=== PATIENT | male | born 1955 | race African-American/Black ===

== ENCOUNTER 2019-04-12 12:31 | Inpatient (IN) ==
[2019-04-12] MEDS ORDERED: ACETAMINOPHEN 325 MG TABLET PO PRN (15:22)
[2019-04-12] MEDS ORDERED: ONDANSETRON 4 MG/2 ML VIAL IV PRN (15:22)
[2019-04-12] MEDS ORDERED: PROMETHAZINE 25 MG/1 ML VIAL IM PRN (15:22)
[2019-04-12] MEDS ORDERED: SODIUM CHLORIDE 0.9% 1,000 ML IV ONE ×2 (15:49→16:15)
[2019-04-12 16:48] LABS: Basophils # 0.1 10*3/uL (0.0-0.2); Basophils % 0.3 % (0.0-0.8); Eosinophils # 0.1 10*3/uL (0.0-0.87); Eosinophils % 0.3 % (0.00-10.9); Hematocrit 28.9 VOL% (42.0-52.0); Hemoglobin 9.1 GM/DL (14.0-18.0); Immature Granulocytes % 2.8 %; Immature Granulocytes Absolute 0.89 #; Lymphocytes # 1.5 10*3/uL (1.4-4.0); Lymphocytes % 4.8 % (21.2-54.2); Mean Corpuscular HGB Conc 31.5 GM/DL (32-36); Mean Corpuscular Volume 80.5 FL (87-102); Mean Platelet Volume 10.1 FL (9.6-12.0); Neutrophils % 88.8 % (38.7-73.9); Platelet Count 521 T/CUMM (130-400); Red Blood Count 3.59 MC/CUMM (3.8-5.5); Red Cell Distribution Width 18.1 % (9.3-17.3); White Blood Count 31.3 T/CUMM (4-12)
[2019-04-12] MEDS ORDERED: DOXYCYCLINE HYCLATE INJ 100 MG in SODIUM CHLORIDE 0.9% 100 ML IV SCH (17:00)
[2019-04-12] MEDS: PANTOPRAZOLE 40 MG TABLET PO SCH (17:08)
[2019-04-12 17:09] LABS: % Iron Saturation 5.4 % (18-50); Ferritin 768.9 ng/ml (26-388)
[2019-04-12] MEDS: cefTRIAXone 2,000 MG in SYRINGE 1 EACH IV SCH (17:10)
[2019-04-12] MEDS: SODIUM CHLORIDE 0.9% 1,000 ML IV SCH (17:10)
[2019-04-12] MEDS: AZITHROMYCIN INJ 500 MG in SODIUM CHLORIDE 0.9% 250 ML IV SCH (17:10)
[2019-04-12 17:17] LABS: Alanine Aminotransferase 20 U/L (16-61); Albumin 1.7 G/DL (3.4-5.0); Alkaline Phosphatase 95 U/L (45-117); Aspartate Amino Transferase 37 U/L (0-37); Bilirubin,Total < 0.39 MG/DL (0.2-1.0); Blood Urea Nitrogen 14 MG/DL (7-18); Calcium 7.7 MG/DL (8.5-10.1); Glucose 80 MG/DL (74-106); Osmolality,Calculated 265.4 MOS/KG (273-304); Total Protein 7.4 G/DL (6.4-8.3)
[2019-04-12 17:23] LABS: Hypochromasia 1+; Lymphocytes 7 % (20-55); Segmented Neutrophils 90 % (50-85); Target Cells Few; Total Cells Counted 100
[2019-04-12 17:24] LABS: Platelet Estimate Increased; Polychromasia Few
[2019-04-12 18:17] LABS: Folate 12.3 NG/ML (5.4-24.0)
[2019-04-12] MEDS: ENOXAPARIN 40 MG/0.4 ML SYRINGE SUBCUT SCH (20:27)
[2019-04-12 21:00] LABS: Apearance,Urine CLEAR (Clear); Bilirubin,Urine Negative (Negative); Blood, Urine Negative (Negative); Glucose,Urine (UA) Negative (Negative); Ketones,Urine Negative (Negative); Nitrite,Urine Negative (Negative); Protein,Urine Negative; RBC,Urine 2 /HPF (0-4); Squamous Epithelial Cell,Urine Occasional /HPF (0-10); Urine Color Yellow (Yellow); Urine Specific Gravity > 1.060 (1.001-1.035); WBC,Urine 1 /HPF (0-6)
[2019-04-13] MEDS: SODIUM CHLORIDE 0.9% 1,000 ML IV SCH ×3 (02:17→21:39)
[2019-04-13] MEDS: MORPHINE 4 MG/1 ML VIAL IV PRN ×2 (03:20→12:10)
[2019-04-13 05:49] LABS: Basophils % 0.2 % (0.0-0.8); Eosinophils # 0.6 10*3/uL (0.0-0.87); Eosinophils % 2.7 % (0.00-10.9); Hematocrit 28.2 VOL% (42.0-52.0); Immature Granulocytes % 1.1 %; Immature Granulocytes Absolute 0.24 #; Lymphocytes # 1.5 10*3/uL (1.4-4.0); Lymphocytes % 6.5 % (21.2-54.2); Mean Corpuscular HGB Conc 31.9 GM/DL (32-36); Mean Corpuscular Volume 79.2 FL (87-102); Mean Platelet Volume 10.2 FL (9.6-12.0); Monocytes % 2.5 % (1.7-12.7); Platelet Count 494 T/CUMM (130-400); Red Blood Count 3.56 MC/CUMM (3.8-5.5); Red Cell Distribution Width 18.3 % (9.3-17.3); White Blood Count 22.6 T/CUMM (4-12)
[2019-04-13 06:07] LABS: Risk Ratio 3.04; VLDL CHOLESTEROL 14.4 MG/DL
[2019-04-13 06:09] LABS: Albumin 1.7 G/DL (3.4-5.0); Bilirubin,Total 0.8 MG/DL (0.2-1.0); Calcium 7.6 MG/DL (8.5-10.1); Osmolality,Calculated 276.5 MOS/KG (273-304); Total Protein 6.7 G/DL (6.4-8.3)
[2019-04-13 06:32] LABS: Band Neutrophils 3 % (0-10); Hypochromasia 2+; Lymphocytes 6 % (20-55); Platelet Estimate Increased; Segmented Neutrophils 88 % (50-85); Target Cells 2+; Total Cells Counted 100
[2019-04-13] MEDS: PANTOPRAZOLE 40 MG TABLET PO SCH (09:24)
[2019-04-13] MEDS: AZITHROMYCIN INJ 500 MG in SODIUM CHLORIDE 0.9% 250 ML IV SCH (16:44)
[2019-04-13] MEDS: cefTRIAXone 2,000 MG in SYRINGE 1 EACH IV SCH (17:03)
[2019-04-13 18:14] LABS: HIV Antigen/Antibody Result Nonreactive (Nonreactive)
[2019-04-13] MEDS: ENOXAPARIN 40 MG/0.4 ML SYRINGE SUBCUT SCH (20:26)
[2019-04-14] MEDS: MORPHINE 4 MG/1 ML VIAL IV PRN (05:16)
[2019-04-14] MEDS: SODIUM CHLORIDE 0.9% 1,000 ML IV SCH ×3 (05:21→23:15)
[2019-04-14 06:46] LABS: Basophils # 0.1 10*3/uL (0.0-0.2); Basophils % 0.3 % (0.0-0.8); Eosinophils # 0.9 10*3/uL (0.0-0.87); Eosinophils % 5.3 % (0.00-10.9); Hematocrit 25.7 VOL% (42.0-52.0); Hemoglobin 8.1 GM/DL (14.0-18.0); Immature Granulocytes % 0.9 %; Immature Granulocytes Absolute 0.14 #; Lymphocytes # 1.8 10*3/uL (1.4-4.0); Lymphocytes % 11.3 % (21.2-54.2); Mean Corpuscular HGB Conc 31.5 GM/DL (32-36); Mean Corpuscular Volume 80.3 FL (87-102); Mean Platelet Volume 10.1 FL (9.6-12.0); Monocytes % 4.1 % (1.7-12.7); Neutrophils % 78.1 % (38.7-73.9); Platelet Count 488 T/CUMM (130-400); Red Cell Distribution Width 18.5 % (9.3-17.3)
[2019-04-14 07:03] LABS: Calcium 7.2 MG/DL (8.5-10.1); Osmolality,Calculated 277.4 MOS/KG (273-304)
[2019-04-14] MEDS: PANTOPRAZOLE 40 MG TABLET PO SCH (08:22)
[2019-04-14] MEDS: AZITHROMYCIN INJ 500 MG in SODIUM CHLORIDE 0.9% 250 ML IV SCH (08:23)
[2019-04-14] MEDS: POTASSIUM CHLORIDE 20 MEQ TABLET PO PRN ×2 (08:26→10:20)
[2019-04-14 10:01] LABS: Albumin (SPE) Rel % 32.5 %; Alpha 1 (SPE) Rel % 3.8 %; Alpha 2 (SPE) Rel % 10.5 %; Beta (SPE) Rel % 12.6 %; Gamma (SPE) Rel % 40.6 %
[2019-04-14 10:15] LABS: Albumin (SPE) 2.5 G/DL (3.2-5.3); Alpha 1 (SPE) 0.3 G/DL (0.1-0.4); Alpha 2 (SPE) 0.8 G/DL (0.4-1.0); Gamma (SPE) 3.2 G/DL (0.7-1.7); Total Protein (Chem) 7.8 G/DL (6.4-8.3)
[2019-04-14] MEDS: AZITHROMYCIN 250 MG TABLET PO SCH (10:18)
[2019-04-14] MEDS: cefTRIAXone 2,000 MG in SODIUM CHLORIDE 0.9% 100 ML IV SCH (10:19)
[2019-04-14] MEDS: ENOXAPARIN 40 MG/0.4 ML SYRINGE SUBCUT SCH (21:50)
[2019-04-15] MEDS: SODIUM CHLORIDE 0.9% 1,000 ML IV SCH ×2 (06:08→22:37)
[2019-04-15 08:52] LABS: Basophils % 0.1 % (0.0-0.8); Eosinophils # 0.7 10*3/uL (0.0-0.87); Eosinophils % 4.3 % (0.00-10.9); Hematocrit 26.5 VOL% (42.0-52.0); Hemoglobin 8.4 GM/DL (14.0-18.0); Immature Granulocytes % 0.7 %; Immature Granulocytes Absolute 0.12 #; Lymphocytes # 1.6 10*3/uL (1.4-4.0); Lymphocytes % 9.6 % (21.2-54.2); Mean Corpuscular HGB Conc 31.7 GM/DL (32-36); Mean Corpuscular Volume 78.9 FL (87-102); Mean Platelet Volume 10.6 FL (9.6-12.0); Monocytes % 4.1 % (1.7-12.7); Neutrophils % 81.2 % (38.7-73.9); Platelet Count 562 T/CUMM (130-400); Red Blood Count 3.36 MC/CUMM (3.8-5.5); Red Cell Distribution Width 18.2 % (9.3-17.3); White Blood Count 16.1 T/CUMM (4-12)
[2019-04-15 09:18] LABS: Osmolality,Calculated 274.5 MOS/KG (273-304)
[2019-04-15] MEDS: AZITHROMYCIN 250 MG TABLET PO SCH (09:29)
[2019-04-15] MEDS: PANTOPRAZOLE 40 MG TABLET PO SCH (09:29)
[2019-04-15] MEDS: cefTRIAXone 2,000 MG in SODIUM CHLORIDE 0.9% 100 ML IV SCH (09:32)
[2019-04-15] MEDS ORDERED: MAGNESIUM SULF RIDER 4 GM in PREMIX 1 EACH IV PRN (10:01)
[2019-04-15] MEDS ORDERED: MAGNESIUM SULF RIDER 2 GM in PREMIX 1 EACH IV PRN (10:01)
[2019-04-15 10:07] LABS: Cyclic Citrull Peptide Interp Negative
[2019-04-15 12:16] LABS: Immuno Free Light Chain Kappa 9.93 MG/DL (0.33-1.94); Immuno Free Light Chain Lambda 17.33 MG/DL (0.57-2.63); Immuno Free Light Chain Ratio 0.57 MG/DL (0.26-1.65)
[2019-04-15 19:54] LABS: Total Protein,Body Fluid 5.3 G/DL
[2019-04-15 19:57] LABS: Lymphocytes,Synovial Fluid 5 %; Neutrophils,Synovial Fluid 87 %
[2019-04-15] MEDS: ENOXAPARIN 40 MG/0.4 ML SYRINGE SUBCUT SCH (20:45)
[2019-04-15 22:40] LABS: Ehrlichia Chaffeensis (HME)IgG <1:64 titer (<1:64)
[2019-04-16] MEDS: SODIUM CHLORIDE 0.9% 1,000 ML IV SCH ×4 (02:11→19:15)
[2019-04-16 06:11] LABS: Basophils % 0.2 % (0.0-0.8); Eosinophils # 0.8 10*3/uL (0.0-0.87); Eosinophils % 4.4 % (0.00-10.9); Hematocrit 26.5 VOL% (42.0-52.0); Hemoglobin 8.4 GM/DL (14.0-18.0); Immature Granulocytes % 0.9 %; Immature Granulocytes Absolute 0.16 #; Lymphocytes # 1.8 10*3/uL (1.4-4.0); Lymphocytes % 10.6 % (21.2-54.2); Mean Corpuscular HGB Conc 31.7 GM/DL (32-36); Mean Corpuscular Volume 78.9 FL (87-102); Mean Platelet Volume 9.7 FL (9.6-12.0); Monocytes % 5.5 % (1.7-12.7); Neutrophils % 78.4 % (38.7-73.9); Platelet Count 540 T/CUMM (130-400); Red Blood Count 3.36 MC/CUMM (3.8-5.5); Red Cell Distribution Width 18.5 % (9.3-17.3)
[2019-04-16 06:16] LABS: Calcium 7.4 MG/DL (8.5-10.1); Osmolality,Calculated 277.3 MOS/KG (273-304)
[2019-04-16] MEDS: AZITHROMYCIN 250 MG TABLET PO SCH (08:01)
[2019-04-16] MEDS: PANTOPRAZOLE 40 MG TABLET PO SCH (08:01)
[2019-04-16] MEDS: cefTRIAXone 2,000 MG in SODIUM CHLORIDE 0.9% 100 ML IV SCH (08:02)
[2019-04-16] MEDS: ENOXAPARIN 40 MG/0.4 ML SYRINGE SUBCUT SCH (20:51)
[2019-04-17] MEDS: SODIUM CHLORIDE 0.9% 1,000 ML IV SCH (03:34)
[2019-04-17 08:02] LABS: Total Protein 24 Hr Ur Result 369 MG/24HR (0-149.1); Total Volume,Urine 4100 ML (400-2000)
[2019-04-17] MEDS: cefTRIAXone 2,000 MG in SODIUM CHLORIDE 0.9% 100 ML IV SCH (08:20)
[2019-04-17] MEDS: PANTOPRAZOLE 40 MG TABLET PO SCH (08:20)
[2019-04-17 08:37] LABS: Basophils % 0.2 % (0.0-0.8); Eosinophils # 0.8 10*3/uL (0.0-0.87); Eosinophils % 4.2 % (0.00-10.9); Hemoglobin 9.2 GM/DL (14.0-18.0); Immature Granulocytes % 0.7 %; Immature Granulocytes Absolute 0.13 #; Lymphocytes # 1.9 10*3/uL (1.4-4.0); Lymphocytes % 10.4 % (21.2-54.2); Mean Corpuscular HGB Conc 32.9 GM/DL (32-36); Mean Platelet Volume 10.3 FL (9.6-12.0); Monocytes % 6.7 % (1.7-12.7); Neutrophils % 77.8 % (38.7-73.9); Platelet Count 631 T/CUMM (130-400); Red Blood Count 3.59 MC/CUMM (3.8-5.5); Red Cell Distribution Width 18.6 % (9.3-17.3); White Blood Count 17.9 T/CUMM (4-12)
[2019-04-17 08:56] LABS: Calcium 7.9 MG/DL (8.5-10.1); Osmolality,Calculated 271.7 MOS/KG (273-304)
[2019-04-17 11:11] LABS: Antinuclear Ab, S 1.2 U; Cyclic Citrull Peptide Ab Mayo < 15.6 U
[2019-04-17 11:51] VITALS: BP 123/76
[2019-04-17 12:50] LABS: 24 Hr Protein (Bench) 369 MG/24HR (0-149.1)
[2019-04-23 13:51] LABS: IgG Detected Against p66 kDa (No Bands); IgG Immunoblot Negative (Negative); IgM Immunoblot Positive (Negative)
== END 2019-04-17 14:00 | disposition home or self-care (01) | DRG 864 ==
LOC: N.2E 14:58 → SUATTDRO 14:58
PROVIDERS: ADMIT Internal Medicine; ATTEND Internal Medicine